=== PATIENT | female | born 1965 | race Asian ===

== ENCOUNTER 2017-09-14 12:50 | Emergency (ER) | payer OTHER ==
[2017-09-14 13:04] VITALS: BP 110/80
--- NOTE | 2017-09-14 13:14 | EDPHY ---
H & P Smoking Status: Never smoked Time Seen by Provider: 09/14/17 13:05 HPI/ROS: CHIEF COMPLAINT: Left index finger laceration HISTORY OF PRESENT ILLNESS: 52-year-old female [id number] up-to-date tetanus sustained accidental laceration left index finger distal phalanx when she was at work today using sharp metal object which lacerated her finger. No paresthesia. No sensory or motor deficit. PHYSICAL EXAM (Prior to examination, patient consented to physical exam, hands were washed and my usual and customary physical exam procedures followed) 1) GENERAL: Well-developed, well-nourished, alert and oriented. Appears to be in no acute distress. 2) HEAD: Normocephalic 3) HEENT: sclera anicteric 4) LUNGS: Breathing comfortably. 5) SKIN: Left left index finger distal phalanx 1 cm well-demarcated linear superficial laceration. 6) MUSCULOSKELETAL: Extensor function the MCP PIP D IP intact, FDS FDP function intact 7) NEUROLOGIC: Two-point discrimination intact, full sensation distally. (Svitlana Rousseau Mariza) Constitutional: Initial Vital Signs Temperature (C) 36.5 C 09/14/17 13:02 Heart Rate 78 09/14/17 13:02 Respiratory Rate 16 09/14/17 13:02 Blood Pressure 110/80 09/14/17 13:02 O2 Sat (%) 98 09/14/17 13:02 O2 Delivery Mode Room Air Allergies/Adverse Reactions: No Known Allergies Allergy (Unverified 09/14/17 13:02) Home Medications: Medication Instructions Recorded NK [No Known Home Meds] 09/14/17 MDM/Departure - [facility] [place] Procedures: Procedure: Laceration repair. I explained the indications, risks and benefits for both laceration repair and anesthetic administration. Verbal consent was obtained from the patient. The laceration on the left index finger was anesthetized using 0.5% bupivicaine without epinephrine digital nerve block. After anesthetic administered the patient was observed for a period of time and had no apparent adverse effects. The wound was cleaned, prepped, draped in normal sterile fashion and explored to its base. No foreign body seen, no foreign bodies palpated. There were no deep structures involved. No tendon injury was identified. The wound was repaired with 2 simple interrupted 5 O Prolene sutures. The wound repair was simple. The procedure was performed by myself. Patient has been informed that scarring will occur, although efforts have been made to minimize this. (Svitlana Rousseau) I did not see this patient while she was in the emergency department. However her care was discussed with the PA while the patient was in the department. I agree with treatment plan and management (Constantine Blanchard) - Depart Disposition: Home, Routine, Self-Care Clinical Impression: Laceration of left index finger Condition: Good Instructions: Care For Your Stitches (ED), Laceration (ED) Additional Instructions: Return to the ER if you develop redness, swelling, discharge, warmth to the wound, red streaks going up your arm, or any other symptoms that concern you. Referrals: Return, to the ER in 10 days for suture removal [Other] - As per Instructions
== END 2017-09-14 13:50 | disposition home or self-care (01) ==
PROC: 0HQGXZZ Repair Left Hand Skin, External Approach (ICD-10-PCS; principal; 2017-09-14)
DX: S61.211A Laceration without foreign body of left index finger without damage to nail, initial encounter (principal); W26.8XXA Contact with other sharp object(s), not elsewhere classified, initial encounter; Y99.0 Civilian activity done for income or pay; Y93.89 Activity, other specified